=== PATIENT | male | born 1995 | race Caucasian/White ===

== ENCOUNTER 2024-04-09 16:39 | Emergency (ER) | payer OTHER, SELFPAY ==
[2024-04-09 16:53] VITALS: BP 132/85; PULSE 84; TEMP 37; O2SAT 98; BMI 20.5
--- NOTE | 2024-04-09 16:53 | ECG_ITS ---
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
--- NOTE | 2024-04-09 16:53 | XR_ITS ---
[address] [address] Patient Name: DARIA RODRIGEZ MRN: [id number] date: 1995 Sex: M Assigned Patient Location: ED.MAIN Current Patient Location: ED.MAIN Accession/Order Number: [id number] Exam Date: 04/09/2024 17:00 Report Date: 04/09/2024 17:26 At the request of: DUANE CLARK Procedure: XR chest 1V Exam: Radiographs: XR chest 1V Reason for exam: Chest pain Comparison: None XR/XR chest 1V IMPRESSION: Unremarkable chest x-ray. Electronically authenticated by: MIROSLAVA HUNG Date: 04/09/2024 17:26
--- NOTE | 2024-04-09 16:54 | ED.CHESTPAI1 ---
HPI - Chest Pain General Chief Complaint: Chest Pain Stated Complaint: CHEST PAIN Time Seen by Provider: 04/09/24 16:45 History of Present Illness HPI narrative: 28-year-old male presents for chest pain. He has had it continuously for 3 days and it is in a very small area of his chest, just below his left nipple. There was no precipitating injury and he does not complain to me of shortness of breath or back pain or radiation of the pain. He states he has gone to the ER many times for chest pain and he was told it was his anxiety. He has no personal history of CAD. It feels like a continuous pain. Related Data Home Medications ?Medication ?Instructions ?Recorded ?Confirmed No Known Home Medications 04/09/24 04/09/24 Allergies Allergy/AdvReac Type Severity Reaction Status Date / Time No Known Drug Allergies Allergy Verified 04/09/24 16:57 Review of Systems ROS Narrative A ten point review of systems is negative except as noted above. PFSH PFSH Social History Little interest or pleasure in doing things: not at all Feeling down, depressed, or hopeless: not at all Exam Narrative Exam Narrative: Nurses note and vital signs reviewed and patient is not hypoxic. General: The patient appears well and in no apparent distress. Patient is resting comfortably on cart. Skin: Warm, dry, no pallor noted. There is no rash noted. Head: Normocephalic, atraumatic Eye: Normal conjunctiva, no drainage Ears, Nose, Mouth, and Throat: oral mucosa is moist. Nares patent. Cardiovascular: Regular Rate and Rhythm. He has a small area of palpable tenderness on the left side of his chest just below and medial to the left nipple. There is no crepitus bruise or rash. Respiratory: Patient is in no distress, no accessory muscle use, lungs are clear to auscultation, no wheezing, rales or rhonchi Back: non-tender GI: Soft and nontender Musculoskeletal: The patient has no evidence of calf tenderness, no pitting edema, symmetrical pulses noted bilaterally Neurological: A&O, normal speech Psychiatric: Cooperative Constitutional Vital Signs, click to edit/add: Last Vital Signs Temp 98.6 F 04/09/24 16:53 Pulse 84 04/09/24 16:53 Resp 19 04/09/24 16:53 BP 132/85 04/09/24 16:53 Pulse Ox 98 04/09/24 16:53 O2 Del Method Room Air 04/09/24 16:53 Course Vital Signs Vital signs: Vital Signs Temperature 98.6 F 04/09/24 16:53 Pulse Rate 84 04/09/24 16:53 Respiratory Rate 19 04/09/24 16:53 Blood Pressure 132/85 04/09/24 16:53 Pulse Oximetry 98 04/09/24 16:53 Oxygen Delivery Method Room Air 04/09/24 16:53 Temperature 98.6 F 04/09/24 16:53 Pulse Rate 84 04/09/24 16:53 Respiratory Rate 19 04/09/24 16:53 Blood Pressure 132/85 04/09/24 16:53 Pulse Oximetry 98 04/09/24 16:53 Oxygen Delivery Method Room Air 04/09/24 16:53 MDM - Chest Pain MDM Narrative Medical decision making narrative: His workup including D-dimer, troponin, chest x-ray, and EKG is negative. He is able to be discharged home and the possibility that this is his anxiety was discussed with the patient. No evidence of pneumothorax, pulmonary embolism, or heart disease. Treatment diagnosis and follow-up were discussed with the patient. Differential Diagnosis Differential diagnosis: Likely pneumothorax, unstable angina pectoris, atypical chest pain, st elevation myocardial infarction, costochondritis and chest pain Lab Data Attestation: I reviewed the patient's lab results. Labs: Lab Results 04/09/24 04/09/24 Range/Units 17:09 17:21 WBC 11.6 H (4.0-11.0) 10^3/uL RBC 4.63 L (4.70-6.10) 10^6/uL Hgb 14.1 (14.0-18.0) g/dL Hct 41.5 L (42.0-54.0) % MCV 89.6 (80.0-94.0) fL MCH 30.5 (25.9-34.0) pg MCHC 34.0 (29.9-35.2) g/dL RDW 12.4 (11.0-15.0) % Plt Count 376 (150-450) 10^3/uL MPV 8.4 L (9.5-13.5) fL Neut % (Auto) 66.7 (43.0-75.0) % Lymph % (Auto) 23.6 (20.5-60.0) % [place] % (Auto) 6.2 (1.7-12.0) % Eos % (Auto) 2.1 (0.9-7.0) % Baso % (Auto) 1.1 (0.2-2.0) % Neut # (Auto) 7.8 H (1.4-6.5) 10^3/uL Lymph # (Auto) 2.8 (1.2-3.8) 10^3/uL [place] # (Auto) 0.7 (0.3-0.8) 10^3/uL Eos # (Auto) 0.2 (0.0-0.7) 10^3/uL Baso # (Auto) 0.1 (0.0-0.1) 10^3/uL Abs Immat Gran (auto) 0.03 (0.00-0.03) 10^3/uL Imm/Tot Granulo (auto) 0.3 (0.0-0.5) % D-Dimer <0.19 (<=0.59) mg/L FEU Sodium 136 (136-145) mmol/L Potassium 3.1 L (3.5-5.1) mmol/L Chloride 100 (98-107) mmol/L Carbon Dioxide 24.1 (21.0-32.0) mmol/L Anion Gap 15.0 BUN 14.0 (7.0-18.0) mg/dL Creatinine 0.88 (0.70-1.30) mg/dL Est GFR ( Amer) >60 (>=60 mL/min/1.73m^2) Est GFR (Non-Af Amer) >60 (>=60 mL/min/1.73m^2) BUN/Creatinine Ratio 15.9 Glucose 95 (74-106) mg/dL Calcium 9.9 (8.5-10.1) mg/dL Troponin I High Sens <4.0 L (4.0-76.1) pg/mL Imaging Data Chest x-ray: Radiologist's impression: ITS Impressions Chest X-Ray 04/09/24 16:53 IMPRESSION: Unremarkable chest x-ray. Electronically authenticated by: MIROSLAVA HUNG Date: 04/09/2024 17:26 ECG Data Attestation: I personally reviewed and interpreted this ECG as follows: (EKG on my interpretation shows sinus rhythm without acute change and a rate of 76) Heart Score History: Slightly/Non-Suspicious ECG: Normal Age: <45 years Risk Factors: No Risk Factors Troponin: <Normal Limit Total Heart Score Recommendations & Risks:: 0 Discharge Plan Discharge Chief Complaint: Chest Pain Clinical Impression: Chest pain Patient Disposition: Home, Self-Care Time of Disposition Decision: 18:24 Condition: Good Mode of Transportation: Private Vehicle Prescriptions / Home Meds: No Action No Known Home Medications Print Language: [place] Instructions: Chest Pain (ED) Referrals: Severo Kelley MD [Physician] - 1 week
[2024-04-09 17:18] LABS: Basophils Absolute Auto 0.1 10^3/uL (0.0-0.1); Basophils Percent Auto 1.1 % (0.2-2.0); Eosinophils Absolute Auto 0.2 10^3/uL (0.0-0.7); Eosinophils Percent Auto 2.1 % (0.9-7.0); Hematocrit 41.5 % (42.0-54.0); Hemoglobin 14.1 g/dL (14.0-18.0); Immature Granulocytes Abs Auto 0.03 10^3/uL (0.00-0.03); Immature Granulocytes Pct Auto 0.3 % (0.0-0.5); Lymphocytes Absolute Auto 2.8 10^3/uL (1.2-3.8); Lymphocytes Percent Auto 23.6 % (20.5-60.0); Mean Corpuscular Hemoglobin 30.5 pg (25.9-34.0); Mean Corpuscular Volume 89.6 fL (80.0-94.0); Mean Platelet Volume 8.4 fL (9.5-13.5); Monocytes Absolute Auto 0.7 10^3/uL (0.3-0.8); Monocytes Percent Auto 6.2 % (1.7-12.0); Neutrophils Absolute Auto 7.8 10^3/uL (1.4-6.5); Neutrophils Percent Auto 66.7 % (43.0-75.0); Platelet Count 376 10^3/uL (150-450); Red Blood Count 4.63 10^6/uL (4.70-6.10); Red Cell Distribution Width 12.4 % (11.0-15.0); White Blood Count 11.6 10^3/uL (4.0-11.0)
[2024-04-09 17:28] LABS: BUN Creatinine Ratio 15.9; Calcium 9.9 mg/dL (8.5-10.1); Carbon Dioxide 24.1 mmol/L (21.0-32.0); Chloride 100 mmol/L (98-107); Estimated GFR (African America >60 (>=60 mL/min/1.73m^2); Estimated GFR (Non-African Ame >60 (>=60 mL/min/1.73m^2); Glucose 95 mg/dL (74-106); Potassium 3.1 mmol/L (3.5-5.1); Sodium 136 mmol/L (136-145)
[2024-04-09 17:34] VITALS: PULSE 95
[2024-04-09 17:36] LABS: Troponin I High Sensitivity <4.0 pg/mL (4.0-76.1)
[2024-04-09 18:12] LABS: D Dimer <0.19 mg/L FEU (<=0.59)
== END 2024-04-09 18:41 | disposition home or self-care (01) ==
PROVIDERS: Emergency Provider Emergency Medicine; PCP Nurse Practitioner Family
DX: R07.9 Chest pain, unspecified (principal)
CPT/HCPCS: 36415; 71045; 80048; 84484; 85025; 85378; 93005; 99285